=== PATIENT | male | born 1955 | race Caucasian/White ===

== ENCOUNTER → 2018-11-08 | Emergency (ER) | payer MEDICAID ==
[2018-11-08] MEDS: KETOROLAC 30 MG INJ IM (16:25)
== END | disposition home or self-care (01) ==
LOC: FTE 13:34
DX: S93.601A Unspecified sprain of right foot, initial encounter (principal); X58.XXXA Exposure to other specified factors, initial encounter; Y92.9 Unspecified place or not applicable
CPT/HCPCS: 73630; 96372; 99284-25

== ENCOUNTER 2019-02-15 10:52 | Emergency (ER) | payer SELFPAY, MEDICAID ==
[2019-02-15 12:15] LABS: ADD MAN DIFF? NO
[2019-02-15] MEDS: ASPIRIN (EC) 81 MG TAB PO (12:15)
[2019-02-15 12:20] LABS: WHITE BLOOD COUNT 6.1 10^3/ul (4.8-10.8)
[2019-02-15 12:20] LABS: ABNORMAL IP MESSAGE 1; BASOPHILS % 0.5 % (0.0-2.0); EOSINOPHILS # 0.1 10^3/ul (0.0-0.5); EOSINOPHILS % 2.1 % (0.0-7.0); HEMATOCRIT 41.2 % (42.0-52.0); HEMOGLOBIN 13.9 g/dl (14.0-18.0); LYMPHOCYTES # 1.7 10^3/ul (0.8-2.9); LYMPHOCYTES % 28.4 % (15.0-51.0); MEAN CORPUSCULAR HEMOGLOBIN 29.6 pg (29.0-33.0); MEAN CORPUSCULAR HGB CONC 33.7 g/dl (32.0-37.0); MEAN CORPUSCULAR VOLUME 87.8 fl (82.0-101.0); MONOCYTE # 0.6 10^3/ul (0.3-0.9); MONOCYTES % 9.3 % (0.0-11.0); NEUTROPHIL # 3.6 10^3/ul (1.6-7.5); NEUTROPHILS % 59.4 % (39.0-77.0); PLATELET COUNT 72 10^3/UL (140-415); POSITIVE DIFF @See below; RED BLOOD COUNT 4.69 10^6/ul (4.70-6.10); RED CELL DISTRIBUTION WIDTH 13.2 % (11.5-14.5)
[2019-02-15 12:43] LABS: ALANINE AMINOTRANSFERASE 69 IU/L (13-69); ALBUMIN 3.8 g/dl (3.3-4.9); ALKALINE PHOSPHATASE 169 IU/L (42-121); ANION GAP 8 (5-13); ASPARTATE AMINO TRANSFERASE 83 IU/L (15-46); BLOOD UREA NITROGEN 11 mg/dl (7-20); CALCIUM 8.9 mg/dl (8.4-10.2); CARBON DIOXIDE 28 mmol/L (21-31); CHLORIDE 102 mmol/L (97-110); Estimated GFR > 60 mL/min (>60); GLUCOSE 267 mg/dl (70-220); SODIUM 138 mmol/L (135-144); TOTAL PROTEIN 7.6 g/dl (6.1-8.1)
[2019-02-15 12:55] LABS: TROPONIN-I < 0.012 ng/ml (0.000-0.120)
== END 2019-02-15 14:25 | disposition home or self-care (01) ==
LOC: FTE 14:25
DX: M25.512 Pain in left shoulder (principal); E11.9 Type 2 diabetes mellitus without complications; R53.1 Weakness
CPT/HCPCS: 73030; 80053; 84484; 85025; 93005; 99285-25